=== PATIENT | female | born 1990 | race Caucasian/White ===

== ENCOUNTER → 2016-10-11 | Outpatient (REF) | payer OTHER ==
[~2016-10-11] MED LIST: ACET50TA PO; DOCU10CA PO; IBUP600T26 PO; IBUP80TA PO; MOM30SS PO
== END | disposition home or self-care (01) ==
LOC: M SMT 16:49
PROVIDERS: ATTEND Nurse Practitioner Women's Health
DX: N20.1 Calculus of ureter (principal)

== ENCOUNTER → 2016-10-18 | Outpatient (REF) | payer OTHER ==
[2016-10-18 12:22] LABS: BASO % 0.7 % (0.0-1.0); EOS # 0.1 K/mm3 (0.0-0.50); EOS % 1.9 % (0.0-3.0); LARGE UNSTAINED CELL # 0.1 K/mm3 (0.0-0.4); LARGE UNSTAINED CELL % 2.4 % (0.0-4.0); LYMPH # 1.5 K/mm3 (1.5-6.5); MEAN CORPUSCULAR HEMOGLOBIN 27.9 pg (27.0-33.0); MEAN CORPUSCULAR VOLUME 82.2 fl (80.0-96.0); MONO # 0.3 K/mm3 (0.0-0.8); MONO % 6.8 % (0.0-5.0); NEUTROPHILS # 2.5 K/mm3 (1.8-7.7); NEUTROPHILS % 55.2 % (36.0-66.0); PLATELET COUNT, AUTOMATED 133 k/mm3 (150-450); RED CELL DISTRIBUTION WIDTH 12.2 % (11.5-14.5); WHITE BLOOD COUNT 4.5 K/mm3 (4.0-10.0)
[2016-10-18 12:29] LABS: ANION GAP 9 MEQ/L (8-16); BLOOD UREA NITROGEN 16 MG/DL (7-18); CALCIUM LEVEL 8.6 MG/DL (8.5-10.1); CARBON DIOXIDE LEVEL 26 MEQ/L (21-32); CHLORIDE LEVEL 108 MEQ/L (98-107); CHOLESTEROL LEVEL 169 MG/DL (<200); CREATININE FOR GFR 0.69 MG/DL (0.55-1.02); GLOMERULAR FILTRATION RATE > 60.0 (>60); GLUCOSE, FASTING 94 MG/DL (70-105); POTASSIUM SERUM 4.1 MEQ/L (3.5-5.1); SODIUM LEVEL 143 MEQ/L (136-145); TRIGLYCERIDES LEVEL 118 MG/DL (<150)
== END | disposition home or self-care (01) ==
LOC: M LABDRAW1 11:41
PROVIDERS: ATTEND Nurse Practitioner Family
DX: Z00.00 Encounter for general adult medical examination without abnormal findings (principal); Z13.220 Encounter for screening for lipoid disorders

== ENCOUNTER 2016-12-15 06:20 | Emergency (ER) | payer OTHER ==
[~2016-12-15] VITALS: Ht 167.6 cm; Wt 82.6 kg
[2016-12-15] MEDS ORDERED: TYLE325T5 PO (06:35)
[2016-12-15] MEDS ORDERED: IBUPROFEN 800 MG TAB PO ONE (08:30)
[2016-12-15 08:58] LABS: BASO % 0.3 % (0.0-1.0); EOS # 0.1 K/mm3 (0.0-0.50); EOS % 1.3 % (0.0-3.0); LARGE UNSTAINED CELL # 0.1 K/mm3 (0.0-0.4); LARGE UNSTAINED CELL % 2.3 % (0.0-4.0); LYMPH # 1.4 K/mm3 (1.5-6.5); LYMPH % 28.6 % (24.0-44.0); MEAN CORPUSCULAR HEMOGLOBIN 27.6 pg (27.0-33.0); MEAN CORPUSCULAR HGB CONC 33.6 g/dl (32.0-36.5); MEAN CORPUSCULAR VOLUME 82.3 fl (80.0-96.0); MONO # 0.3 K/mm3 (0.0-0.8); MONO % 5.8 % (0.0-5.0); NEUTROPHILS % 61.7 % (36.0-66.0); PLATELET COUNT, AUTOMATED 134 k/mm3 (150-450); RED CELL DISTRIBUTION WIDTH 12.4 % (11.5-14.5); WHITE BLOOD COUNT 4.8 K/mm3 (4.0-10.0)
[2016-12-15 09:09] LABS: ALBUMIN 3.3 GM/DL (3.2-5.2); ALBUMIN/GLOBULIN RATIO 1.06 (1.00-1.93); ALKALINE PHOSPHATASE 68 U/L (45-117); ALT/SGPT 34 U/L (12-78); ANION GAP 6 MEQ/L (8-16); AST/SGOT 28 U/L (15-37); BILIRUBIN,DIRECT 0.1 MG/DL (0.0-0.2); BILIRUBIN,TOTAL 0.4 MG/DL (0.2-1.0); BLOOD UREA NITROGEN 17 MG/DL (7-18); CALCIUM LEVEL 8.1 MG/DL (8.5-10.1); CARBON DIOXIDE LEVEL 28 MEQ/L (21-32); CHLORIDE LEVEL 108 MEQ/L (98-107); CREATININE FOR GFR 0.72 MG/DL (0.55-1.02); GLOMERULAR FILTRATION RATE > 60.0 (>60); GLUCOSE, FASTING 97 MG/DL (70-105); SODIUM LEVEL 142 MEQ/L (136-145); TOTAL PROTEIN 6.4 GM/DL (6.4-8.2)
[2016-12-15] MEDS ORDERED: NS 500 ML IV ONE (09:45)
[2016-12-15] MEDS ORDERED: ISOVUE-370 76% 100ML VIAL (Q9967) As Ordered ONE (09:54)
--- NOTE | 2016-12-15 10:41 | REP ---
CT study of the abdomen and pelvis with IV but without oral contrast: History: Elevated lipase. Right upper quadrant pain. Comparison CT study is from June 01, 2016. CT contrast dose: 100 mL of Isovue 370 is administered intravenously. Findings: Preliminary digital an/syq 13 nav/c2 operator radiograph demonstrates an unremarkable bowel gas pattern. The lung bases are clear on axial CT images. There is moderate to marked diffuse fatty infiltration of the liver. The liver is mildly enlarged measuring 18 cm in craniocaudal span in the midclavicular line. The spleen is mildly prominent as well measuring 13.7 cm in greatest dimension. No focal splenic lesion is seen. No adrenal abnormality is observed. The gallbladder is unremarkable by CT imaging. Pancreas is morphologically intact. This does not exclude pancreatitis. No cyst or mass is seen. No peripancreatic inflammation is observed. The kidneys enhance symmetrically and are morphologically intact. Small and large intestinal bowel loops are normal in the abdomen and pelvis. No retroperitoneal mass or adenopathy is observed. No uterine or ovarian abnormality is seen. No free fluid is noted. The urinary bladder is intact. No abdominal wall defect is seen. The appendix is not identified confidently but there is no inflammatory change adjacent to the right colon to suggest appendicitis. No bony destructive lesion is seen. Impression: Hepatosplenomegaly. Moderate to marked diffuse fatty infiltration of the liver. Gallbladder and pancreas are unremarkable by CT imaging. No other abnormality. Signed by Junito Stark MD 12/15/2016 10:58 A
[2016-12-15] MEDS ORDERED: ZOFR4TAB3 PO (10:55)
[2016-12-15 10:56] VITALS: BP 111/69
--- NOTE | 2016-12-17 20:48 | ED PDOC ---
Post-Departure [facility] faxed formal report of ct abd/p for fu Pilar Garcia MD Dec 17, 2016 20:48
== END 2016-12-15 10:59 | disposition home or self-care (01) ==
LOC: M ED 08:12
DX: R10.11 Right upper quadrant pain (principal); R74.8 Abnormal levels of other serum enzymes
CPT/HCPCS: 36415; 74177; 80048; 80076; 81001; 81025; 83690; 85025; 99283; Q9967

== ENCOUNTER → 2017-03-01 | Outpatient (REF) | payer OTHER ==
[~2017-03-01] MED LIST changes: +TYLE325T5 PO; +ZOFR4TAB3 PO
[2017-03-01 11:24] LABS: FREE T4 0.91 NG/DL (0.76-1.46)
== END ==
LOC: M LABDRAW1 09:01
PROVIDERS: ATTEND Internal Medicine Endocrinology, Diabetes & Metabolism
DX: E06.3 Autoimmune thyroiditis (principal)

== ENCOUNTER 2017-04-18 11:11 | Emergency (ER) | payer OTHER ==
[~2017-04-18] VITALS: Ht 170.2 cm; Wt 86.3 kg
[2017-04-18 11:11] VITALS: BP 116/88
[2017-04-18] MEDS ORDERED: SYNT100T PO (11:26)
[2017-04-18] MEDS ORDERED: ESCI20TA (11:26)
[2017-04-18] MEDS ORDERED: AUGMENTIN 875 MG TAB PO ONE (12:15)
[2017-04-18] MEDS ORDERED: ACETAMINOPHEN 325 MG TAB PO ONE (12:15)
[2017-04-18] MEDS ORDERED: LIDOCAINE 2% MDV 20 ML VIAL SC ONE (12:15)
[2017-04-18] MEDS ORDERED: AUGM875T28 PO (12:57)
[2017-04-18] MEDS ORDERED: ADACEL/BOOSTRIX VACCINE (DIPHTH/PERTUSS/ACELL/TETANUS)0.5ML SYR (90715) IM ONE (13:00)
== END 2017-04-18 13:40 | disposition home or self-care (01) ==
LOC: M ED 11:11
DX: S61.432A Puncture wound without foreign body of left hand, initial encounter (principal); S61.412A Laceration without foreign body of left hand, initial encounter; W55.01XA Bitten by cat, initial encounter; Y92.009 Unspecified place in unspecified non-institutional (private) residence as the place of occurrence of the external cause; Y93.89 Activity, other specified; Y99.8 Other external cause status; J45.909 Unspecified asthma, uncomplicated; Z79.899 Other long term (current) drug therapy

== ENCOUNTER → 2017-06-27 | Outpatient (REF) | payer OTHER ==
[~2017-06-27] MED LIST changes: +AUGM875T28 PO; +ESCI20TA; +SYNT100T PO
[2017-06-27 11:49] LABS: FREE T4 0.97 NG/DL (0.76-1.46)
== END ==
LOC: M LABDRAW1 10:18
PROVIDERS: ATTEND Internal Medicine Endocrinology, Diabetes & Metabolism
DX: E06.3 Autoimmune thyroiditis (principal)

== ENCOUNTER → 2017-07-04 | Outpatient (REF) | payer OTHER ==
[2017-07-04 13:26] LABS: MEAN CORPUSCULAR HGB CONC 33.3 g/dl (32.0-36.5); MEAN CORPUSCULAR VOLUME 84.1 fl (80.0-96.0); RED CELL DISTRIBUTION WIDTH 13.3 % (11.5-14.5); WHITE BLOOD COUNT 5.7 10^3/uL (4.0-10.0)
[2017-07-04 14:02] LABS: FREE T4 0.88 NG/DL (0.76-1.46); HCG, SERUM QUANTITATIVE 7070 MIU/ML
[2017-07-05 11:23] LABS: HBsAg Prenatal NEGATIVE (NEGATIVE)
== END ==
LOC: M LAB REF 12:35
PROVIDERS: ATTEND Obstetrics & Gynecology
DX: O36.80X0 Pregnancy with inconclusive fetal viability, not applicable or unspecified (principal); E03.9 Hypothyroidism, unspecified; Z3A.00 Weeks of gestation of pregnancy not specified; O99.280 Endocrine, nutritional and metabolic diseases complicating pregnancy, unspecified trimester

== ENCOUNTER → 2017-08-20 | Outpatient (REF) | payer OTHER ==
[2017-08-20 17:10] LABS: FREE T4 0.81 NG/DL (0.76-1.46)
== END ==
LOC: M LABDRAW1 16:06
PROVIDERS: ATTEND Nurse Practitioner Family
DX: E06.3 Autoimmune thyroiditis (principal)

== ENCOUNTER → 2017-08-29 | Outpatient (REF) | payer OTHER ==
[2017-08-29 15:23] LABS: FREE T4 0.92 NG/DL (0.76-1.46)
== END ==
LOC: M LAB REF 13:17
PROVIDERS: ATTEND Advanced Practice Midwife
DX: E03.9 Hypothyroidism, unspecified (principal); Z3A.13 13 weeks gestation of pregnancy

== ENCOUNTER → 2017-09-17 | Outpatient (REF) | payer OTHER ==
[2017-09-17 18:19] LABS: FREE T4 0.79 NG/DL (0.76-1.46)
== END ==
LOC: M LABDRAW1 16:43
PROVIDERS: ATTEND Nurse Practitioner Family
DX: E06.3 Autoimmune thyroiditis (principal)

== ENCOUNTER → 2017-09-26 | Outpatient (REF) | payer OTHER ==
[2017-09-26 18:11] LABS: MEAN CORPUSCULAR HEMOGLOBIN 27.8 pg (27.0-33.0); MEAN CORPUSCULAR HGB CONC 33.1 g/dl (32.0-36.5); MEAN CORPUSCULAR VOLUME 83.9 fl (80.0-96.0); PLATELET COUNT, AUTOMATED 154 10^3/uL (150-450)
== END ==
LOC: M LAB REF 17:17
DX: O09.892 Supervision of other high risk pregnancies, second trimester (principal)

== ENCOUNTER → 2017-10-21 | Outpatient (REF) | payer OTHER ==
[2017-10-21 15:59] LABS: FREE T4 0.79 NG/DL (0.76-1.46)
[2017-10-21 15:59] LABS: THYROID STIMULATING HORMONE 0.607 uIU/ML (0.358-3.740)
== END ==
LOC: M LABDRAW1 14:23
DX: E06.3 Autoimmune thyroiditis (principal)

== ENCOUNTER → 2017-10-24 | Outpatient (REF) | payer OTHER | LOC: M LAB REF 12:37 | DX: E03.9 Hypothyroidism, unspecified (principal) | CPT/HCPCS: 84443 ==

== ENCOUNTER → 2017-12-05 | Outpatient (CLI) | payer OTHER ==
[2017-12-05 16:24] LABS: HEMATOCRIT 34.6 % (36.0-47.0); HEMOGLOBIN 11.1 g/dl (12.0-16.0); MEAN CORPUSCULAR HEMOGLOBIN 26.6 pg (27.0-33.0); MEAN CORPUSCULAR HGB CONC 32.1 g/dl (32.0-36.5); MEAN CORPUSCULAR VOLUME 82.8 fl (80.0-96.0); PLATELET COUNT, AUTOMATED 143 10^3/uL (150-450); RED BLOOD COUNT 4.18 10^6/uL (4.00-5.40); RED CELL DISTRIBUTION WIDTH 13.9 % (11.5-14.5); WHITE BLOOD COUNT 8.8 10^3/uL (4.0-10.0)
[2017-12-05 16:57] LABS: GLUCOSE CHALLENGE TEST 1 HOUR 136 MG/DL (LESS THAN 140)
== END ==
LOC: M WUC 12:56
DX: Z34.82 Encounter for supervision of other normal pregnancy, second trimester (principal)
CPT/HCPCS: 82950

== ENCOUNTER → 2017-12-19 | Outpatient (REF) | payer OTHER ==
[2017-12-19 14:36] LABS: FREE T4 0.84 NG/DL (0.76-1.46)
== END ==
LOC: M LAB REF 13:02
DX: E03.9 Hypothyroidism, unspecified (principal)
CPT/HCPCS: 84443

== ENCOUNTER → 2018-01-22 | Outpatient (REF) | payer OTHER | LOC: M LAB REF 16:26 | DX: Z34.93 Encounter for supervision of normal pregnancy, unspecified, third trimester (principal) ==

== ENCOUNTER 2018-02-24 15:33 | Inpatient (IN) | payer OTHER ==
[2018-02-24] MEDS: AMPICILLIN SOD 2 GM in APPROPRIATE DILUENT 20 ML IV (16:18)
[2018-02-24] MEDS: LR 1,000 ML IV (16:18)
[2018-02-24 16:24] LABS: HEMATOCRIT 33.2 % (36.0-47.0); HEMOGLOBIN 10.4 g/dl (12.0-15.5); MEAN CORPUSCULAR HEMOGLOBIN 23.8 pg (27.0-33.0); MEAN CORPUSCULAR HGB CONC 31.3 g/dl (32.0-36.5); PLATELET COUNT, AUTOMATED 120 10^3/uL (150-450); RED BLOOD COUNT 4.37 10^6/uL (4.00-5.40); RED CELL DISTRIBUTION WIDTH 15.9 % (11.5-14.5); WHITE BLOOD COUNT 7.5 10^3/uL (4.0-10.0)
[2018-02-24] MEDS: miSOPROStol 50 MCG 1/2 TAB (S0191) PO ×2 (18:21→22:27)
[2018-02-24] MEDS: AMPICILLIN SOD 1 GM in APPROPRIATE DILUENT 10 ML IV (21:03)
[2018-02-24] MEDS ORDERED: FENTANYL 2MCG/ML ROPIVACAINE 0.2% IN 0.9% NACL 200ML IVBAG As Ordered (23:59)
[2018-02-25] MEDS ORDERED: NALOXONE INJ 0.4 MG/1 ML VIAL (J2310) IV (00:15)
[2018-02-25] MEDS ORDERED: EPIDURAL COMMENT XX (00:15)
[2018-02-25] MEDS ORDERED: LACTATED RINGER'S 1000 ML IV (00:15)
[2018-02-25] MEDS ORDERED: FENTANYL/ROPIVACAINE/NACL BAG 200 ML EPIDURAL (00:15)
[2018-02-25] MEDS ORDERED: ONDANSETRON 4MG/2ML VIAL (J2405) IV (00:15)
[2018-02-25] MEDS ORDERED: ePHEDrine SULFATE 25 MG/5 ML(5MG/ML) SYRINGE IV (00:15)
[2018-02-25] MEDS ORDERED: REFRIGERATOR IV KEYS XX (00:15)
[2018-02-25] MEDS ORDERED: EPIDURAL/PCA KEYS XX (00:15)
[2018-02-25] MEDS: AMPICILLIN SOD 1 GM in APPROPRIATE DILUENT 10 ML IV ×3 (00:20→07:59)
[2018-02-25] MEDS: diphenhydrAMINE INJ 50MG/ML VIAL (J1200) IV (01:47)
[2018-02-25] MEDS: miSOPROStol 50 MCG 1/2 TAB (S0191) PO (02:20)
[2018-02-25] MEDS: LR 1,000 ML IV ×2 (02:20→06:51)
[2018-02-25] MEDS ORDERED: OXYTOCIN DRIP 30 UNITS in APPROPRIATE DILUENT 1 EA IV (07:45)
[2018-02-25] MEDS: OXYTOCIN DRIP 30 UNITS in APPROPRIATE DILUENT 1 EA IV (08:47)
[2018-02-25] MEDS ORDERED: DOCUSATE SODIUM 100 MG CAP PO (09:00)
[2018-02-25] MEDS: PRENATAL VITAMINS CHEWABLE TABLET PO (09:00)
[2018-02-25] MEDS ORDERED: ANUSOL HC CREAM 30GM TOP (09:00)
[2018-02-25] MEDS ORDERED: DIBUCAINE 1% OINTMENT 30GM TOP (09:00)
[2018-02-25] MEDS ORDERED: METHYLERGONOVINE MALEATE 0.2 MG TAB PO (09:00)
[2018-02-25 09:06] LABS: CORD GAS ABE A -1.3; CORD GAS ABE V -1.2; CORD GAS HCO3 A 25.6 MEQ/L; CORD GAS HCO3 V 24.7 MEQ/L; CORD GAS O2 SAT A 38.5 %; CORD GAS O2 SAT V 58.7 %; CORD GAS PCO2 A 50.6 mmHg; CORD GAS PCO2 V 45.1 mmHg; CORD GAS PH A 7.322 UNITS; CORD GAS PH V 7.356 UNITS; CORD GAS PO2 A 18.2 mmHg; CORD GAS PO2 V 23.9 mmHg; CORD GAS SBC A 21.6 MEQ/L; CORD GAS SBC V 22.3 MEQ/L; CORD GAS TCO2 A 27.2 MEQ/L; CORD GAS TCO2 V 26.1 MEQ/L
[2018-02-25] MEDS: RHOGAM 300 MCG (1500 IU) INJ (J2790) IM (11:05)
[2018-02-25] MEDS: MEASLES,MUMPS,RUBELLA VACCINE INJ (MMR-II) (90707) SC (11:06)
[2018-02-25] MEDS: IBUPROFEN 800 MG TAB PO ×2 (12:25→22:41)
[2018-02-25] MEDS: ACETAMINOPHEN 500 MG TAB PO (13:44)
[2018-02-26] MEDS: ACETAMINOPHEN 500 MG TAB PO (06:14)
[2018-02-26] MEDS: PRENATAL VITAMINS CHEWABLE TABLET PO (08:39)
== END 2018-02-26 12:00 | disposition home or self-care (01) | DRG 560 ==
LOC: M LDI 15:33 → M OBS 02-25 10:59
PROVIDERS: Obstetrics & Gynecology
PROC: 3E0P7GC Introduction of Other Therapeutic Substance into Female Reproductive, Via Natural or Artificial Opening (ICD-10-PCS; 2018-02-24)
PROC: 10E0XZZ Delivery of Products of Conception, External Approach (ICD-10-PCS; principal; 2018-02-25)
PROC: 10907ZC Drainage of Amniotic Fluid, Therapeutic from Products of Conception, Via Natural or Artificial Opening (ICD-10-PCS; 2018-02-25)
DX: O99.112 Other diseases of the blood and blood-forming organs and certain disorders involving the immune mechanism complicating pregnancy, second trimester (principal); E03.9 Hypothyroidism, unspecified; Z3A.39 39 weeks gestation of pregnancy; O99.824 Streptococcus B carrier state complicating childbirth; D69.6 Thrombocytopenia, unspecified; O99.284 Endocrine, nutritional and metabolic diseases complicating childbirth; Z37.0 Single live birth

== ENCOUNTER → 2018-07-21 | Outpatient (CLI) | payer OTHER | LOC: M WUC 08:54 | DX: S60.211A Contusion of right wrist, initial encounter (principal); X58.XXXA Exposure to other specified factors, initial encounter; Y92.9 Unspecified place or not applicable | CPT/HCPCS: 73110 ==

== ENCOUNTER → 2018-10-14 | Outpatient (REF) | payer OTHER ==
[~2018-10-14] MED LIST changes: -ACET50TA PO; +ADVI200T PO; +MAPA500T2 PO; +MULTTAB20 PO; +ZOFR4TAB14 PO; -ZOFR4TAB3 PO
[2018-10-14 17:36] LABS: HEMATOCRIT 43.7 % (36.0-47.0); HEMOGLOBIN 14.3 g/dl (12.0-15.5); MEAN CORPUSCULAR HEMOGLOBIN 27.3 pg (27.0-33.0); MEAN CORPUSCULAR HGB CONC 32.7 g/dl (32.0-36.5); MEAN CORPUSCULAR VOLUME 83.4 fl (80.0-96.0); PLATELET COUNT, AUTOMATED 172 10^3/uL (150-450); RED BLOOD COUNT 5.24 10^6/uL (4.00-5.40)
[2018-10-14 17:49] LABS: ALBUMIN 3.8 GM/DL (3.2-5.2); ALT/SGPT 36 U/L (12-78); BILIRUBIN,TOTAL 0.4 MG/DL (0.2-1.0); BLOOD UREA NITROGEN 14 MG/DL (7-18); CALCIUM LEVEL 9.1 MG/DL (8.5-10.1); CARBON DIOXIDE LEVEL 27 MEQ/L (21-32); CHLORIDE LEVEL 105 MEQ/L (98-107); CREATININE FOR GFR 0.75 MG/DL (0.55-1.30); FREE T4 0.73 NG/DL (0.76-1.46); GLOMERULAR FILTRATION RATE > 60.0 (>60); GLUCOSE, FASTING 95 MG/DL (70-100); POTASSIUM SERUM 4.1 MEQ/L (3.5-5.1); SODIUM LEVEL 141 MEQ/L (136-145); TOTAL PROTEIN 7.1 GM/DL (6.4-8.2)
== END ==
LOC: M SFHCPLAZ 14:58
PROVIDERS: ATTEND Physician Assistant
DX: F32.9 Major depressive disorder, single episode, unspecified (principal); F41.9 Anxiety disorder, unspecified

== ENCOUNTER → 2019-01-21 | Outpatient (REF) | payer OTHER ==
[2019-01-21 18:21] LABS: FREE T4 0.74 NG/DL (0.76-1.46); THYROID STIMULATING HORMONE 3.09 uIU/ML (0.358-3.740)
== END ==
LOC: M LABDRAW1 17:22
PROVIDERS: ATTEND Nurse Practitioner Family
DX: E06.3 Autoimmune thyroiditis (principal)

== ENCOUNTER → 2019-07-06 | Outpatient (REF) | payer OTHER ==
[2019-07-06 18:30] LABS: FREE T4 0.8 NG/DL (0.76-1.46); THYROID STIMULATING HORMONE 2.66 uIU/ML (0.358-3.740)
[2019-07-06 18:32] LABS: TOTAL 25(OH) VITAMIN D 25.6 NG/ML (30.0-100.0)
[2019-07-06 18:38] LABS: BASO % 0.4 % (0.0-1.0); EOS # 0.2 10^3/uL (0.0-0.5); HEMATOCRIT 44.4 % (36.0-47.0); HEMOGLOBIN 14.7 g/dl (12.0-15.5); LYMPH # 2.1 10^3/uL (1.5-5.0); LYMPH % 37.5 % (24.0-44.0); MEAN CORPUSCULAR HEMOGLOBIN 28.5 pg (27.0-33.0); MEAN CORPUSCULAR HGB CONC 33.1 g/dl (32.0-36.5); MEAN CORPUSCULAR VOLUME 86.2 fl (80.0-96.0); MONO # 0.5 10^3/uL (0.0-0.8); MONO % 8.3 % (0.0-5.0); NEUTROPHILS # 2.9 10^3/uL (1.5-8.5); NEUTROPHILS % 50.6 % (36.0-66.0); PLATELET COUNT, AUTOMATED 149 10^3/uL (150-450); RED BLOOD COUNT 5.15 10^6/uL (4.00-5.40); WHITE BLOOD COUNT 5.7 10^3/uL (4.0-10.0)
== END ==
LOC: M SFHCPLAZ 14:36
PROVIDERS: ATTEND Nurse Practitioner Family
DX: E03.9 Hypothyroidism, unspecified (principal); E55.9 Vitamin D deficiency, unspecified; F41.8 Other specified anxiety disorders

== ENCOUNTER → 2019-10-28 | Outpatient (REF) | payer MEDICAID | LOC: M SFHCPLAZ 13:01 | PROVIDERS: ATTEND Nurse Practitioner Family | DX: N39.0 Urinary tract infection, site not specified (principal) ==

== ENCOUNTER → 2020-10-19 | Outpatient (REF) | payer OTHER, MEDICAID ==
[~2020-10-19] MED LIST changes: -ESCI20TA; +ESCI20TA16
[2020-10-19 17:38] LABS: BASO % 0.7 % (0.0-1.0); EOS # 0.1 10^3/uL (0.0-0.5); EOS % 1.3 % (0.0-3.0); HEMATOCRIT 45.2 % (36.0-47.0); HEMOGLOBIN 14.6 g/dl (12.0-15.5); LYMPH # 2.2 10^3/uL (1.5-5.0); LYMPH % 39.4 % (24.0-44.0); MEAN CORPUSCULAR HEMOGLOBIN 27.5 pg (27.0-33.0); MEAN CORPUSCULAR HGB CONC 32.3 g/dl (32.0-36.5); MEAN CORPUSCULAR VOLUME 85.1 fl (80.0-96.0); MONO # 0.5 10^3/uL (0.0-0.8); MONO % 8.8 % (0.0-5.0); NEUTROPHILS # 2.8 10^3/uL (1.5-8.5); NEUTROPHILS % 49.6 % (36.0-66.0); PLATELET COUNT, AUTOMATED 170 10^3/uL (150-450); RED BLOOD COUNT 5.31 10^6/uL (4.00-5.40); WHITE BLOOD COUNT 5.6 10^3/uL (4.0-10.0)
[2020-10-19 18:13] LABS: ALBUMIN 4.3 GM/DL (3.2-5.2); ALT/SGPT 31 U/L (12-78); BILIRUBIN,TOTAL 0.7 MG/DL (0.2-1.0); BLOOD UREA NITROGEN 15 MG/DL (7-18); CALCIUM LEVEL 9.5 MG/DL (8.5-10.1); CARBON DIOXIDE LEVEL 25 MEQ/L (21-32); CHLORIDE LEVEL 109 MEQ/L (98-107); CREATININE FOR GFR 0.75 MG/DL (0.55-1.30); FREE T4 1.13 NG/DL (0.76-1.46); GLOMERULAR FILTRATION RATE > 60.0 (>60); GLUCOSE, FASTING 82 MG/DL (70-100); POTASSIUM SERUM 4.2 MEQ/L (3.5-5.1); SODIUM LEVEL 140 MEQ/L (136-145); THYROID STIMULATING HORMONE 0.517 uIU/ML (0.358-3.740); TOTAL PROTEIN 7.1 GM/DL (6.4-8.2)
[2020-10-19 18:16] LABS: TOTAL 25(OH) VITAMIN D 24.3 NG/ML (30.0-100.0)
== END ==
LOC: M SFHCPLAZ 13:32
PROVIDERS: ATTEND Nurse Practitioner Family
DX: E03.9 Hypothyroidism, unspecified (principal); K76.0 Fatty (change of) liver, not elsewhere classified; E55.9 Vitamin D deficiency, unspecified

== ENCOUNTER → 2021-04-19 | Outpatient (CLI) | payer OTHER, MEDICAID ==
--- NOTE | 2021-04-19 13:31 | REP ---
INDICATION: RIGHT HIP PAIN, KNEE PAIN. COMPARISON: None. TECHNIQUE: Five views of the right knee are provided. FINDINGS: Five views of the right knee demonstrate normal bones, joints, and soft tissues. No fracture or subluxation is seen. No opaque foreign body noted. IMPRESSION: Negative right knee series. <Electronically signed by Leonard Stark > 04/19/21 [id number]
--- NOTE | 2021-04-19 13:32 | REP ---
INDICATION: RIGHT HIP PAIN, KNEE PAIN. COMPARISON: None. TECHNIQUE: AP and frogleg views of the right hip are provided. FINDINGS: The femoral head is smooth and rounded hip joint space is preserved on the right. There is a small os acetabuli E. periarticular soft tissues are unremarkable. No fracture or erosive change. IMPRESSION: Negative right hip radiographs. <Electronically signed by Leonard Stark > 04/19/21 [id number]
[2021-04-19 15:21] LABS: BASO % 0.4 % (0.0-1.0); EOS # 0.1 10^3/uL (0.0-0.5); EOS % 1.6 % (0.0-3.0); HEMATOCRIT 44.6 % (36.0-47.0); HEMOGLOBIN 14.4 g/dl (12.0-15.5); LYMPH # 1.9 10^3/uL (1.5-5.0); LYMPH % 39.6 % (24.0-44.0); MEAN CORPUSCULAR HEMOGLOBIN 27.7 pg (27.0-33.0); MEAN CORPUSCULAR HGB CONC 32.3 g/dl (32.0-36.5); MEAN CORPUSCULAR VOLUME 85.9 fl (80.0-96.0); MONO # 0.6 10^3/uL (0.0-0.8); MONO % 11.5 % (2.0-8.0); NEUTROPHILS # 2.3 10^3/uL (1.5-8.5); NEUTROPHILS % 46.7 % (36.0-66.0); PLATELET COUNT, AUTOMATED 151 10^3/uL (150-450); RED BLOOD COUNT 5.19 10^6/uL (4.00-5.40); WHITE BLOOD COUNT 4.9 10^3/uL (4.0-10.0)
[2021-04-19 15:52] LABS: ALT/SGPT 36 U/L (12-78); BILIRUBIN,TOTAL 0.7 MG/DL (0.2-1.0); BLOOD UREA NITROGEN 14 MG/DL (7-18); CALCIUM LEVEL 8.8 MG/DL (8.5-10.1); CARBON DIOXIDE LEVEL 26 MEQ/L (21-32); CHLORIDE LEVEL 111 MEQ/L (98-107); CHOLESTEROL LEVEL 167 MG/DL (<200); CREATININE FOR GFR 0.58 MG/DL (0.55-1.30); FREE T4 0.74 NG/DL (0.76-1.46); GLOMERULAR FILTRATION RATE > 60.0 (>60); GLUCOSE, FASTING 81 MG/DL (70-100); HDL CHOLESTEROL 46 MG/DL (>40); LDL CHOLESTEROL 102 MG/DL (<100); NON-HDL-C 121 MG/DL; POTASSIUM SERUM 4.1 MEQ/L (3.5-5.1); SODIUM LEVEL 142 MEQ/L (136-145); TRIGLYCERIDES LEVEL 93 MG/DL (<150)
[2021-04-19 18:17] LABS: TOTAL 25(OH) VITAMIN D 24.8 NG/ML (30.0-100.0)
== END ==
LOC: M PLALAB 12:08
PROVIDERS: ATTEND Nurse Practitioner Family
DX: E03.9 Hypothyroidism, unspecified (principal)

== ENCOUNTER → 2025-04-01 | Outpatient (CLI) | payer OTHER | LOC: M RAD 09:10 | PROVIDERS: ATTEND Internal Medicine | DX: E04.9 Nontoxic goiter, unspecified (principal) ==

== ENCOUNTER → 2025-05-25 | Outpatient (REF) | payer OTHER, MEDICAID ==
[2025-05-25 19:17] LABS: BASO # 0.1 10^3/uL (0.0-0.2); BASO % 0.8 % (0.0-1.0); EOS # 0.2 10^3/uL (0.0-0.5); EOS % 3.3 % (0.0-3.0); LYMPH # 1.7 10^3/uL (1.5-5.0); LYMPH % 27.9 % (24.0-44.0); MONO # 0.6 10^3/uL (0.0-0.8); MONO % 9.1 % (2.0-8.0); NEUTROPHILS # 3.6 10^3/uL (1.5-8.5); NEUTROPHILS % 58.7 % (36.0-66.0); PLATELET COUNT, AUTOMATED 206 10^3/uL (150-450)
[2025-05-25 19:20] LABS: ALT/SGPT 25 U/L (7.0-40); AST/SGOT 20 U/L (<34); CALCIUM LEVEL 9.4 MG/DL (8.5-10.1); CARBON DIOXIDE LEVEL 26 MMOL/L (20-31); CHLORIDE LEVEL 109 MMOL/L (98-107); CHOLESTEROL LEVEL 185 MG/DL (<200); CHOLESTEROL RISK RATIO 3.47 (<5); CREATININE FOR GFR 0.68 MG/DL (0.55-1.30); GLOMERULAR FILTRATION RATE > 90.0 (>60); LDL CHOLESTEROL 119.7 MG/DL (<100); NON-HDL-C 131.7 MG/DL; POTASSIUM SERUM 4.1 MMOL/L (3.5-5.1); SODIUM LEVEL 143 MMOL/L (136-145); TRIGLYCERIDES LEVEL 60 MG/DL (<150)
[2025-05-29 17:38] LABS: LYME TOTAL ANTIBODY CIA <= 0.90 Index (<=0.90)
== END ==
LOC: M SFHCADAM 11:37
PROVIDERS: ATTEND Family Medicine
DX: Z00.00 Encounter for general adult medical examination without abnormal findings (principal); S20.461S Insect bite (nonvenomous) of right back wall of thorax, sequela